=== PATIENT | female | born 1995 ===

== ENCOUNTER 2017-10-15 09:01 | Inpatient (IN) | payer BC ==
[~2017-10-15] VITALS: Ht 172.7 cm; Wt 86.4 kg
[2017-12-04] VITALS (7 sets, daily range): BP systolic 116–134; BP diastolic 67–82; PULSE 72–95; TEMP 97.6–98.5
[2017-12-04] MEDS ORDERED: PRENATAL MVI (19:10)
[2017-12-04 19:50] LABS: BASO # 0.1 (0.0-0.2); BASO % 0.4 % (0.0-2.0); EOS # 0.1 (0.0-0.7); EOS % 0.8 % (0-4.0); GRAN # 7.9 (1.4-6.5); GRAN % 64.5 % (42.2-75.2); HEMATOCRIT 35.7 % (37.0-47.0); HEMOGLOBIN 12.4 g/dl (12.5-16.0); LYMPH # 3.1 (1.2-3.4); MEAN CELL VOLUME 94 fl (80.0-100.0); MEAN CORPUSCULAR HEMOGLOBIN 33 pg (27.0-31.0); MEAN CORPUSCULAR HGB CONC 35 g/dl (33.0-37.0); MEAN PLATELET VOLUME 9.8 fl (7.4-10.4); MONO # 1.1 (0.1-0.6); MONO % 8.8 % (1.7-9.3); PLATELET COUNT 225 K/mm3 (130-400); REDCELL DISTRIBUTION WIDTH-CV 12.3 % (11.5-14.5)
[2017-12-05] VITALS (52 sets, daily range): BP systolic 105–147; BP diastolic 55–86; PULSE 63–103; TEMP 97.5–98.9
[2017-12-06 03:15] VITALS: BP 113/70; PULSE 84; TEMP 98.7
[2017-12-06 06:40] LABS: HEMOGLOBIN 11.1 g/dl (12.5-16.0)
[2017-12-06 07:20] VITALS: BP 105/62; PULSE 83; TEMP 97.8
[2017-12-06] MEDS ORDERED: PERCOCET 325 MG1 TA2 PO (08:47)
[2017-12-06] MEDS ORDERED: IBU600 MG PO (08:47)
[2017-12-06 17:03] VITALS: BP 113/61; PULSE 79; TEMP 98.1
[2017-12-06 18:45] VITALS: BP 120/72; PULSE 80; TEMP 97.6
[2017-12-07 07:58] VITALS: BP 111/65; PULSE 73; TEMP 98.1
== END 2017-12-07 14:30 | disposition home or self-care (01) | DRG 775 ==
LOC: LDR → OB 12-05 15:25
PROVIDERS: Obstetrics & Gynecology
PROC: 10E0XZZ Delivery of Products of Conception, External Approach (ICD-10-PCS; principal; 2017-12-05)
PROC: 0UQM0ZZ Repair Vulva, Open Approach (ICD-10-PCS; 2017-12-05)
PROC: 3E033VJ Introduction of Other Hormone into Peripheral Vein, Percutaneous Approach (ICD-10-PCS; 2017-12-05)
DX: O48.0 Post-term pregnancy (principal); O69.81X0 Labor and delivery complicated by cord around neck, without compression, not applicable or unspecified; O70.0 First degree perineal laceration during delivery; Z3A.40 40 weeks gestation of pregnancy; Z37.0 Single live birth
CPT/HCPCS: J2210; J2590; J2795; J7120

== ENCOUNTER 2022-05-26 21:52 | Inpatient (IN) | payer BC ==
[~2022-05-26] VITALS: Ht 172.7 cm; Wt 88.2 kg
[~2022-05-26 21:52] MED LIST: IBU600 MG PO; PERCOCET 325 MG1 TA2 PO; PRENATAL MVI
[2022-05-26 22:18] VITALS: BP 131/81; PULSE 66; TEMP 97.7
[2022-05-26 23:00] VITALS: BP 131/81
[2022-05-26 23:06] LABS: HEMOGLOBIN 12.8 g/dl (12.5-16.0); MEAN CELL VOLUME 90 fl (80.0-100.0); MEAN CORPUSCULAR HEMOGLOBIN 32 pg (27-31); MEAN CORPUSCULAR HGB CONC 36 g/dl (33.0-37.0); MEAN PLATELET VOLUME 10.1 fl (7.4-10.4); PLATELET COUNT 264 K/mm3 (130-400); RED BLOOD COUNT 4.02 M/mm3 (4.10-5.30); REDCELL DISTRIBUTION WIDTH-CV 11.9 % (11.5-14.5)
[2022-05-27] VITALS (9 sets, daily range): BP systolic 100–133; BP diastolic 62–95; PULSE 61–95; TEMP 98–98.6
--- NOTE | 2022-05-27 01:38 | NUR ---
@[address] STANFORD REGARDING A PATIENT IS HERE WITH THE COMPLAINT OF A RUPTURE MEMBRANE ALONG WITH CONTRACTIONS. SVE/+2 AND IS SCROM. PATIENT STATES SHE RUPTURE AT 05/26/22 @2029 AND THE BABY IS MOVING FINE. DR. STANFORD ADMITTED PT FOR LABOR. @2330 RN PLACED UNGER AND COMPLETED A SVE /0. DR. STANFORD WAS MADE AWARE AND IS NEEDED AT THE BEDSIDE FOR DELIVERY. @2353 DR. STANFORD ARRIVE SVE /+2. PATIENT LEGS WERE PLACED IN STIRRUPS FOR DELIVERY. BABY BORN AT 0002.
--- NOTE | 2022-05-27 03:16 | NUR ---
Patient assisted with iraj- care, pad, mesh panties and cleean gown applied. RN transferred via wheel chair and pt tolerated it well. Patient and spouse were both oriented to the unit and stated an understanding. Patient understands that her urine must be collected in the urine hat that wa splaced in the toliet. will continue to monitor pt.
--- NOTE | 2022-05-27 06:13 | NUR ---
report given to FUENTES Moffett
--- NOTE | 2022-05-27 12:47 | NUR ---
Helicopter Technician offered congrats to patient and spouse.
[2022-05-28 07:51] VITALS: BP 112/64; PULSE 76; TEMP 98.4
[2022-05-28] MEDS ORDERED: IBU800 M1 PO (09:48)
== END 2022-05-28 10:19 | disposition home or self-care (01) | DRG 807 ==
LOC: LDRO 21:52 → LDR 22:35 → OB 05-27 02:30
PROVIDERS: ADMIT Obstetrics & Gynecology
PROC: 10E0XZZ Delivery of Products of Conception, External Approach (ICD-10-PCS; principal; 2022-05-27)
DX: O99.344 Other mental disorders complicating childbirth (principal); Z37.0 Single live birth; F41.9 Anxiety disorder, unspecified; F32.A Depression, unspecified; Z3A.39 39 weeks gestation of pregnancy
CPT/HCPCS: J2590; J7120